=== PATIENT | male | born 1995 | race Caucasian/White ===

== ENCOUNTER 2017-05-01 15:14 | Emergency (ER) | payer OTHER ==
[2017-05-01 15:18] VITALS: RESP 16; TEMP 98.2; O2SAT 95
[2017-05-01] MEDS ORDERED: ACETAMINOPHEN 500 MG TAB PO ONE (15:31)
--- NOTE | 2017-05-01 15:37 | EDPHY ---
H & P Stated Complaint: Laceration to right cheek - cut with sunglasses while playing baseball Time Seen by Provider: 05/01/17 15:30 HPI/ROS: CHIEF COMPLAINT: Facial laceration HISTORY OF PRESENT ILLNESS: Patient is a 21-year-old man who comes to the emergency department complaining of a laceration to his right cheek. He was hit in the face with a baseball line drive. He did not lose consciousness. He does complain of a headache. No nausea vomiting. No seizure-like activity. He also complains of mild facial pain. He had a bloody nose but it is now resolved. REVIEW OF SYSTEMS: Constitutional: denies: chills, fever, recent illness, recent injury EENTM: See HPI Respiratory: denies: cough, shortness of breath Cardiac: denies: chest pain, irregular heart rate, lightheadedness, palpitations Gastrointestinal/Abdominal: denies: abdominal pain, diarrhea, nausea, vomiting, blood streaked stools Genitourinary: denies: dysuria, frequency, hematuria, pain Musculoskeletal: denies: joint pain, muscle pain Skin: denies: lesions, rash, jaundice, bruising Neurological: denies: headache, numbness, paresthesia, tingling, dizziness, weakness Hematologic/Lymphatic: denies: blood clots, easy bleeding, easy bruising Immunologic/allergic: denies: HIV/AIDS, transplant EXAM: GENERAL: Well-appearing, well-nourished and in no acute distress. HEAD: Atraumatic, normocephalic. EYES: Pupils equal round and reactive to light, extraocular movements intact, sclera anicteric, conjunctiva are normal. Vision intact ENT: 3 cm linear laceration right cheek, no crepitus or deformity. Extraocular muscles intact, NECK: Normal range of motion, supple without lymphadenopathy or JVD. LUNGS: Breath sounds clear to auscultation bilaterally and equal. No wheezes rales or rhonchi. HEART: Regular rate and rhythm without murmurs, rubs or gallops. ABDOMEN: Soft, nontender, normoactive bowel sounds. No guarding, no rebound. No masses appreciated. BACK: No CVA tenderness, no spinal tenderness, step-offs or deformities EXTREMITIES: Normal range of motion, no pitting or edema. No clubbing or cyanosis. NEUROLOGICAL: Cranial nerves II through XII grossly intact. Normal speech, normal gait. 5/5 strength, normal movement in all extremities, normal sensation PSYCH: Normal mood, normal affect. SKIN: Warm, dry, normal turgor, no visible rashes or lesions. Source: Patient Exam Limitations: No limitations - Personal History Current Tetanus Diphtheria and Acellular Pertussis (TDAP): Yes - Medical/Surgical History Hx Asthma: No Hx Chronic Respiratory Disease: No Hx Diabetes: No Hx Cardiac Disease: No Hx Renal Disease: No Hx Cirrhosis: No Hx Alcoholism: No Hx HIV/AIDS: No Hx Splenectomy or Spleen Trauma: No Other PMH: Denies - Family History Significant Family History: No pertinent family hx - Social History Smoking Status: Never smoked Alcohol Use: Sober Drug Use: None Constitutional: Initial Vital Signs Temperature (C) 36.8 C 05/01/17 15:15 Heart Rate 89 05/01/17 15:15 Respiratory Rate 16 05/01/17 15:15 Blood Pressure 139/86 H 05/01/17 15:15 O2 Sat (%) 95 05/01/17 15:15 O2 Delivery Mode Room Air Allergies/Adverse Reactions: seasonal Allergy (Uncoded 05/01/17 15:17) Medical Decision Making - Diagnostics Imaging Results: Imaging Impressions Head CT 05/01/17 15:35 Impression: 1. Normal CT brain without contrast. 2. Right anterior cheek soft tissue swelling without maxillary wall or zygomatic arch fracture. Findings and recommendations discussed with Emergency Department physician, LYNDA ADRIAN at 16:08 hour, 05/01/2017. Final report concurs with initial preliminary interpretation. Procedures: Procedure: Laceration repair. Verbal consent was obtained from the patient. The right cheek laceration was anesthetized with 0.5% bupivacaine and epinephrine locally infiltrated. The wound was irrigated copiously according to protocol, draped and explored to its base. It was approximately 1/2 cm deep. There were no deep structures involved. No tendon, nerve, or vascular injury was identified when explored through full range of motion. No foreign body was identified. The wound was repaired with 4.0 Vicryl deep, 3 sutures and 6.0 fast-absorbing gut is 6 sutures superficially, interrupted. The wound repair was complex with layered closure. The procedure was performed by myself. A dressing was then placed with sterile gauze. ED Course/Re-evaluation: Patient tolerated the procedure well. Good cosmetic result. Discussed suture care. Parents are happy in her eager to take him home. Differential Diagnosis: Partial list of the Differential diagnosis considered include but were not limited to; laceration, facial fracture, head injury, concussion and although unlikely based on the history and physical exam, I also considered neck injury, eye injury. I discussed these differential diagnoses and the plan with the patient as well as the usual and expected course. The patient understands that the diagnosis is provisional and that in medicine we are not always correct and that further workup is often warranted. Usual and customary warnings were given. All of the patient's questions were answered. The patient was instructed to return to the emergency department should the symptoms at all worsen or return, otherwise to followup with the physician as we discussed. - Data Points Medications Given: Discontinued Medications Acetaminophen (Tylenol) 1,000 mg PO EDNOW ONE Stop: 05/01/17 15:32 Last Admin: 05/01/17 15:37 Dose: 1,000 mg Departure - Departure Disposition: Home, Routine, Self-Care Clinical Impression: Laceration Concussion Qualifiers: Encounter type: initial encounter Loss of consciousness presence/duration: without LOC Qualified Code(s): S06.0X0A - Concussion without loss of consciousness, initial encounter Condition: Fair Instructions: Laceration (ED), Concussion (ED), Care For Your Absorbable Stitches (ED) Additional Instructions: If your stitches do not dissolve within 5 days return to have them removed. Referrals: CHRISTOPHER ELIZONDO [Other] - As per Instructions
[2017-05-01 17:09] VITALS: BP 124/74; PULSE 83
== END 2017-05-01 17:07 | disposition home or self-care (01) ==
PROC: 0HQ1XZZ Repair Face Skin, External Approach (ICD-10-PCS; principal; 2017-05-01)
DX: S06.0X0A Concussion without loss of consciousness, initial encounter (principal); S01.411A Laceration without foreign body of right cheek and temporomandibular area, initial encounter; W22.8XXA Striking against or struck by other objects, initial encounter